=== PATIENT | female | born 2000 | race African-American/Black ===

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

== ENCOUNTER 2018-02-13 11:38 | Emergency (ER) | payer MEDICAID, OTHER, SELFPAY ==
[2018-02-13 12:51] LABS: Bilirubin Negative (Negative); Blood, Urine Large (Negative); Clarity Hazy (Clear); Glucose, Urine (Dipstick) Negative (Negative); Leukocyte Trace (Negative); Nitrite Negative (Negative); Protein, Urine (Dipstick) Negative (Neg-Trace); Urobilinogen 0.2 mg/dL (0.2-1.0)
[2018-02-13 12:52] LABS: Pregu Control Background? CLEAR/WHITE (CLR/WHITE); Pregu Control Bar Appear? YES (CONTROL BAR)
[2018-02-13 13:01] LABS: Pregnancy Test - Urine (BHCG) Negative (Negative)
[2018-02-13 13:04] LABS: Bacteria/HPF Rare-Few HPF (None Seen); Crystals/HPF 2+ AMORPH URATES HPF (Negative); RBC/HPF 0-3 HPF (0-3)
== END 2018-02-13 13:29 | disposition home or self-care (01) ==
LOC: MADERS 11:38
DX: N93.9 Abnormal uterine and vaginal bleeding, unspecified (principal)
CPT/HCPCS: 81003; 81015; 81025; 99284

== ENCOUNTER 2018-09-04 21:16 | Emergency (ER) | payer SELFPAY | END 2018-09-04 22:25 | disposition home or self-care (01) | LOC: MADERS 21:16 | DX: B34.9 Viral infection, unspecified (principal) | CPT/HCPCS: 87804; 99283 ==

== ENCOUNTER 2019-05-09 14:39 | Emergency (ER) | payer BC ==
[2019-05-09] MEDS ORDERED: Ondansetron ODT 4 MG TAB ONE (15:15)
[2019-05-09 15:39] LABS: Bilirubin Negative (Negative); Blood, Urine Large (Negative); Clarity Hazy (Clear); Glucose, Urine (Dipstick) Negative (Negative); Leukocyte Trace (Negative); Nitrite Negative (Negative); Protein, Urine (Dipstick) 30 mg/dL (Neg-Trace)
[2019-05-09 15:41] LABS: Pregnancy Test - Urine (BHCG) Negative (Negative); Pregu Control Background? CLEAR/WHITE (CLR/WHITE); Pregu Control Bar Appear? YES (CONTROL BAR)
[2019-05-09 15:45] LABS: Bacteria/HPF Rare-Few HPF (None Seen); Mucous/LPF 2+ LPF (<2+); Trichomonas/HPF 1+ HPF (None Seen)
[2019-05-09] MEDS ORDERED: Prochlorperazine 10 MG/2 ML VIAL ONE (16:08)
== END 2019-05-09 16:20 | disposition home or self-care (01) ==
LOC: MADERS 14:39
DX: K29.20 Alcoholic gastritis without bleeding (principal); R11.2 Nausea with vomiting, unspecified
CPT/HCPCS: 81003; 81015; 81025; 96372; 99284; J0780; Q0162

== ENCOUNTER 2019-09-11 13:29 | Emergency (ER) | payer BC, MEDICAID | END 2019-09-11 14:38 | disposition home or self-care (01) | LOC: MADERS 13:29 | DX: R51 Headache (principal); R55 Syncope and collapse; W18.30XA Fall on same level, unspecified, initial encounter | CPT/HCPCS: 99283 ==